=== PATIENT | female | born 1945 ===

== ENCOUNTER 2022-12-02 05:20 | Day surgery (SDC) | payer OTHER ==
[~2022-12-02 05:20] MED LIST: HORIZANT300 MG; HUMULIN R100 UNIT/1; LANTU; PLAVIX75 MG PO; TRENTAL PO; [UNRECOGNIZED DRUG - REMARK] PO
[2022-12-02] MEDS ORDERED: TRAM1TAB98 PO (09:16)
[2022-12-02] MEDS ORDERED: MACROBID 100 M100 MG PO (09:16)
== END 2022-12-02 13:00 | disposition home or self-care (01) ==
LOC: CIR.AMB 05:20
PROVIDERS: ATTEND Obstetrics & Gynecology Gynecology
DX: N81.11 Cystocele, midline (principal); N81.6 Rectocele; N81.5 Vaginal enterocele; N81.83 Incompetence or weakening of rectovaginal tissue; N76.0 Acute vaginitis